=== PATIENT | male | born 1965 | race Caucasian/White ===

== ENCOUNTER 2017-07-30 06:16 | Emergency (ER) | payer BC ==
[2017-07-30] MEDS ORDERED: ONDANSETRON 4MG/2ML VIAL (J2405) As Ordered (06:30)
[2017-07-30] MEDS: LR 1,000 ML IV (06:30)
[2017-07-30] MEDS: ONDANSETRON 4MG/2ML VIAL (J2405) IV (06:30)
[2017-07-30 06:41] LABS: BASO % 0.2 % (0.0-1.0); EOS % 0.1 % (0.0-3.0); HEMATOCRIT 46.6 % (42.0-52.0); HEMOGLOBIN 15.8 g/dl (13.5-17.5); IMMATURE GRANULOCYTE % 0.5 % (0-3.0); LYMPH % 7.6 % (24.0-44.0); MEAN CORPUSCULAR HGB CONC 33.9 g/dl (32.0-36.5); MEAN CORPUSCULAR VOLUME 88.6 fl (80.0-96.0); MONO # 0.5 10^3/uL (0.0-0.8); MONO % 3.8 % (0.0-5.0); NEUTROPHILS # 11.4 10^3/uL (1.8-7.7); NEUTROPHILS % 87.8 % (36.0-66.0); PLATELET COUNT, AUTOMATED 197 10^3/uL (150-450); RED BLOOD COUNT 5.26 10^6/uL (4.30-6.10); RED CELL DISTRIBUTION WIDTH 13.5 % (11.5-14.5)
[2017-07-30] MEDS: NS 1,000 ML IV (06:42)
[2017-07-30] MEDS ORDERED: cefoTEtan DISODIUM 2 GM in D5W MINI-BAG PLUS 50 ML IV (06:45)
[2017-07-30] MEDS: KETOROLAC 30 MG/ML VIAL (J1885) IV (07:00)
[2017-07-30 07:11] LABS: ALBUMIN 4.2 GM/DL (3.2-5.2); ALKALINE PHOSPHATASE 72 U/L (45-117); ALT/SGPT 58 U/L (12-78); ANION GAP 9 MEQ/L (8-16); AST/SGOT 33 U/L (7-37); BILIRUBIN,DIRECT 0.2 MG/DL (0.0-0.2); BILIRUBIN,TOTAL 0.8 MG/DL (0.2-1.0); BLOOD UREA NITROGEN 15 MG/DL (7-18); CALCIUM LEVEL 8.9 MG/DL (8.5-10.1); CARBON DIOXIDE LEVEL 25 MEQ/L (21-32); CHLORIDE LEVEL 107 MEQ/L (98-107); CREATININE FOR GFR 1.59 MG/DL (0.70-1.30); GLOMERULAR FILTRATION RATE 49.3 (>56); GLUCOSE, FASTING 120 MG/DL (70-100); LIPASE 293 U/L (73-393); POTASSIUM SERUM 3.9 MEQ/L (3.5-5.1); SODIUM LEVEL 141 MEQ/L (136-145); TOTAL PROTEIN 7.7 GM/DL (6.4-8.2)
[2017-07-30 07:55] LABS: KETONE, URINE AUTO RFX 1+ mg/dL (NEGATIVE); LEUKOCYTE ESTERASE UR AUTO RFX NEGATIVE (NEGATIVE); MUCUS, URINE RFX SMALL (NEGATIVE); NITRITE, URINE AUTO RFX NEGATIVE (NEGATIVE); RBC, URINE AUTO RFX 3 /HPF (0-3); SPECIFIC GRAVITY UR AUTO RFX 1.016 (1.002-1.035); SQUAM EPITHELIAL CELL UR AURFX 0 /HPF (0-6); WBC, URINE AUTO RFX 0 /HPF (0-3)
== END 2017-07-30 08:24 | disposition home or self-care (01) ==
LOC: M ED 06:16
DX: A08.4 Viral intestinal infection, unspecified (principal)
CPT/HCPCS: J2405

== ENCOUNTER 2018-11-24 20:28 | Emergency (ER) | payer BC ==
[~2018-11-24] VITALS: Ht 188 cm; Wt 131.8 kg
[~2018-11-24 20:28] MED LIST: ZOFR4TAB14 PO
[2018-11-24 20:47] LABS: BASO % 0.3 % (0.0-1.0); EOS % 0.4 % (0.0-3.0); HEMOGLOBIN 17.6 g/dl (13.5-17.5); LYMPH # 1.4 10^3/uL (1.5-5.0); LYMPH % 12.2 % (24.0-44.0); MEAN CORPUSCULAR HEMOGLOBIN 32.2 pg (27.0-33.0); MEAN CORPUSCULAR HGB CONC 35.2 g/dl (32.0-36.5); MEAN CORPUSCULAR VOLUME 91.4 fl (80.0-96.0); MONO # 0.5 10^3/uL (0.0-0.8); MONO % 4.8 % (0.0-5.0); NEUTROPHILS # 9.2 10^3/uL (1.5-8.5); NEUTROPHILS % 81.8 % (36.0-66.0); PLATELET COUNT, AUTOMATED 172 10^3/uL (150-450); RED BLOOD COUNT 5.47 10^6/uL (4.30-6.10); WHITE BLOOD COUNT 11.2 10^3/uL (4.0-10.0)
[2018-11-24] MEDS ORDERED: ASPIRIN 81 MG CHEW TABLET PO ONE (21:00)
[2018-11-24 21:13] LABS: CALCIUM LEVEL 9.4 MG/DL (8.5-10.1); CK-MB VALUE MASS 3.2 NG/ML (<3.6); CREATININE FOR GFR 1.5 MG/DL (0.70-1.30); GLOMERULAR FILTRATION RATE 52.5 (>56); MB/CK RELATIVE INDEX 1.5 (< OR =4); POTASSIUM SERUM 3.8 MEQ/L (3.5-5.1); TROPONIN I 0.95 NG/ML (< 0.10)
[2018-11-24] MEDS: NITROGLYCERIN 0.4 MG SUBL TABLET SL PRN ×2 (21:14→21:47)
[2018-11-24] MEDS ORDERED: ONDANSETRON 4MG/2ML VIAL (J2405) IV ONE (21:45)
[2018-11-24] MEDS ORDERED: HEPARIN SOD (PORCINE) 5000 UNITS/ML VIAL IV ONE (22:00)
[2018-11-24 22:24] LABS: INR 1.11
[2018-11-24 22:25] LABS: PARTIAL THROMBOPLASTIN TIME 30.2 SECONDS (25.0-38.4)
[2018-11-24] MEDS ORDERED: NITROGLYCERIN 2% OINT 1 GM *U/D* PKT TOP ONE (22:45)
[2018-11-24] MEDS ORDERED: HEPARIN DRIP 25,000 UNITS in IV 1 EA IV SCH (23:00)
[2018-11-24 23:23] VITALS: BP 123/79
--- NOTE | 2018-11-25 07:17 | ECGEPIP ---
[facility] - ED Test Date: 2018-11-24 Pat Name: JOHNNY TODD Department: Room: - Gender: Male Product Expert: : 1965 Requested By: TOMASA Jimenez Order Number: [id number] Reading MD: Wale Jones Measurements Intervals [place] Rate: 59 P: 46 MI: 157 QRS: -17 QRSD: 113 T: 63 QT: 390 QTc: 388 Interpretive Statements SINUS BRADYCARDIA WITH SINUS ARRHYTHMIA SEPTAL MYOCARDIAL INFARCTION, POSSIBLY ACUTE ST DEPRESSION, CONSIDER SUBENDOCARDIAL INJURY CLINICAL CORRELATION Electronically Signed on 11-25-2018 7:16:58 EDT by Wale Jones
--- NOTE | 2018-11-25 07:20 | ECGEPIP ---
[facility] - ED Test Date: 2018-11-24 Pat Name: JOHNNY TODD Department: Room: - Gender: Male Cd Technician: IAN : 1965 Requested By: TOMASA Jimenez Order Number: [id number] Reading MD: Wale Jones Measurements Intervals [place] Rate: 54 P: 32 IA: 148 QRS: 5 QRSD: 98 T: 94 QT: 404 QTc: 386 Interpretive Statements SINUS BRADYCARDIA SEPTAL ST ELEVATION RESOLVED, RECIPROCAL ST-T ABNORMALITIES NEAR TO COMPLETE RESOLUTION COMPARED TO PRIOR ON SAME DATE Electronically Signed on 11-25-2018 7:19:40 EDT by Wale Jones
--- NOTE | 2018-11-25 08:06 | REP ---
Clinical: Acute chest pain . Comparison: None . Findings: The mediastinum and cardiac silhouette are stable and within normal limits for portable technique. The lung durant are clear without acute consolidation, effusion, or pneumothorax. Skeletal structures are intact. Impression: No acute cardiopulmonary process appreciated. Electronically Signed by Dangelo Perales MD 11/25/2018 07:57 A
[2018-12-21] MEDS ORDERED: ASPI81TA26 PO (13:14)
[2018-12-21] MEDS ORDERED: METO25TA4 PO (13:14)
[2018-12-21] MEDS ORDERED: METO50TA7 PO (13:14)
[2018-12-21] MEDS ORDERED: ATOR80TA59 PO (13:14)
[2018-12-21] MEDS ORDERED: BRIL90TA PO (13:14)
== END 2018-11-24 23:34 | disposition short-term general hospital (02) ==
LOC: M ED 20:28
DX: I20.0 Unstable angina (principal); R00.1 Bradycardia, unspecified; R06.02 Shortness of breath; Z79.82 Long term (current) use of aspirin; Z79.899 Other long term (current) drug therapy
CPT/HCPCS: 71045; 80048; 82550; 82553; 84484; 85025; 85610; 85730; 93005; 93041; 94760; 96374; 99285; J2405

== ENCOUNTER → 2018-12-05 | Outpatient (CLI) | payer BC ==
[~2018-12-05] MED LIST changes: +ASPI81TA26 PO; +ATOR80TA59 PO; +BRIL90TA PO; +METO25TA4 PO; +METO50TA7 PO
[2018-12-05 10:54] LABS: BASO % 0.3 % (0.0-1.0); EOS # 0.1 10^3/uL (0.0-0.5); EOS % 1.8 % (0.0-3.0); HEMOGLOBIN 15.4 g/dl (13.5-17.5); LYMPH # 1.2 10^3/uL (1.5-5.0); MEAN CORPUSCULAR HEMOGLOBIN 31.6 pg (27.0-33.0); MEAN CORPUSCULAR HGB CONC 33.5 g/dl (32.0-36.5); MEAN CORPUSCULAR VOLUME 94.5 fl (80.0-96.0); MONO # 0.5 10^3/uL (0.0-0.8); MONO % 7.8 % (0.0-5.0); NEUTROPHILS # 4.3 10^3/uL (1.5-8.5); NEUTROPHILS % 70.8 % (36.0-66.0); PLATELET COUNT, AUTOMATED 194 10^3/uL (150-450); RED BLOOD COUNT 4.87 10^6/uL (4.30-6.10); WHITE BLOOD COUNT 6.1 10^3/uL (4.0-10.0)
[2018-12-05 11:09] LABS: HEMOGLOBIN A1c 5.6 %
[2018-12-05 11:14] LABS: ALBUMIN 3.5 GM/DL (3.2-5.2); BILIRUBIN,TOTAL 1.2 MG/DL (0.2-1.0); CALCIUM LEVEL 8.8 MG/DL (8.5-10.1); CHOLESTEROL RISK RATIO 2.921 (<5); CREATININE FOR GFR 1.44 MG/DL (0.70-1.30); GLOMERULAR FILTRATION RATE 55.1 (>56); POTASSIUM SERUM 4.5 MEQ/L (3.5-5.1); TOTAL PROTEIN 6.5 GM/DL (6.4-8.2)
== END ==
LOC: M LAB 10:14
PROVIDERS: ATTEND Student in an Organized Health Care Education/Training Program
DX: Z13.1 Encounter for screening for diabetes mellitus (principal); R79.89 Other specified abnormal findings of blood chemistry; Z13.220 Encounter for screening for lipoid disorders

== ENCOUNTER → 2018-12-26 | Outpatient (REF) | payer BC ==
[2018-12-26 18:34] LABS: APPEARANCE, URINE CLEAR (CLEAR); BACTERIA, URINE AUTO NEGATIVE (NEGATIVE); BILIRUBIN, URINE AUTO NEGATIVE (NEGATIVE); BLOOD, URINE BLOOD NEGATIVE (NEGATIVE); COLOR, URINE YELLOW (YELLOW); GLUCOSE, URINE (UA) AUTO NEGATIVE (NEGATIVE); KETONE, URINE AUTO NEGATIVE (NEGATIVE); LEUKOCYTE ESTERASE, URINE AUTO NEGATIVE (NEGATIVE); MUCUS, URINE SMALL (NEGATIVE); NITRITE, URINE AUTO NEGATIVE (NEGATIVE); PROTEIN, URINE AUTO NEGATIVE (NEGATIVE); RBC, URINE AUTO 1 /HPF (0-3); SPECIFIC GRAVITY URINE AUTO 1.024 (1.002-1.035); SQUAMOUS EPITHELIAL CELL UR AU 0 /HPF (0-6); UROBILINOGEN, URINE AUTO 0.2 mg/dL (0.0-2.0); WBC, URINE AUTO 0 /HPF (0-3)
== END ==
LOC: M SFHCPLAZ 16:50
PROVIDERS: ATTEND Family Medicine
DX: R79.89 Other specified abnormal findings of blood chemistry (principal)

== ENCOUNTER → 2019-01-02 | Outpatient (CLI) | payer BC ==
[2019-01-02 14:17] LABS: BLOOD UREA NITROGEN 16 MG/DL (7-18); CARBON DIOXIDE LEVEL 26 MEQ/L (21-32); CHLORIDE LEVEL 105 MEQ/L (98-107); CREATININE FOR GFR 1.26 MG/DL (0.70-1.30); GLOMERULAR FILTRATION RATE > 60.0 (>56); GLUCOSE, FASTING 100 MG/DL (70-100); POTASSIUM SERUM 4.2 MEQ/L (3.5-5.1); SODIUM LEVEL 137 MEQ/L (136-145)
== END ==
LOC: M LAB 12:40
PROVIDERS: ATTEND Family Medicine
DX: R79.89 Other specified abnormal findings of blood chemistry (principal)

== ENCOUNTER 2019-01-18 14:50 | Outpatient (RCR) | payer BC ==
--- NOTE | 2018-12-21 14:08 | CARECAPL ---
Assessment Account #s: Initial Assessment General Diagnoses: Stent, NSTEMI Date of event: Nov 24, 2018 Physician: Ever Reese P Allergies: Coded Allergies: No Known Allergies (Unverified , 07/30/17) Date Entered Program: Dec 21, 2018 Risk strat for cardiac event: Low Exercise Date: Dec 21, 2018 Assessment: Initial Assessment Stages of change: Contemplate Exercise Prescription Plan TO EDUCATE AND BUILD ENDURANCE THROUGH MONITORED EXERCISE Modalities initiated: Treadmill (WILL ADD), Cardio-Strider (WILL ADD), Nustep (WILL ADD), Arm Aerometer (WILL ADD), Dumbells (WILL ADD), Recumbent Bike (WILL ADD) Frequency: 3 Duration (Minutes) 30 - 60 minutes total exercise a day. 15 - 20 work intervals in minutes. PRN rest intervals in minutes. Functional Capacity Goal Sustained Metabolic Equivalent of a task (MET) goal of 2.5-3.5 for 15-20 minutes. Intensity: 3-Moderate Progression (METS) Increase by: 0.5 METS every: 5 sessions TOLERATED Angina with ex: No Target Heart Rate REST +35-40 Resistance Training: Yes Weight (pounds): 2 Reps: 12-15 Hypertension: Yes Hypertension controlled with: Medication (METOPROLOL) Resting 129/71 Medications Scheduled Aspirin (Aspirin EC), 1 TAB PO DAILY, (Reported) Atorvastatin Calcium (Atorvastatin Calcium), 1 TAB PO DAILY, (Reported) Metoprolol Tartrate (Metoprolol Tartrate), 1 TAB PO DAILY, (Reported) Metoprolol Tartrate (Metoprolol Tartrate), 50 MG PO QHS, (Reported) Ticagrelor Base (Brilinta), 90 MG PO BID, (Reported) Current BP 129/71 Med Change: No Intervention Resistance Training: Yes Education: Self pulse (INSTRUCTED ON TAKING SELF PULSE), Low NA diet (REVIEWED IMPORTANCE OF NOT ADDING SALT TO DIET), BP medication (REVIEWED METOPROLOL, USE AND ACTION) Target Goals Individual exercise Rx (1) BP 140/90 or 130/80 if DM or CKD (1) Aerobic active 30+min 5 days per week (1) Nutrition Date: Dec 21, 2018 Assessment: Initial Assessment Stages of change: Contemplate Lipid- med/supplement ATORVASTATIN Med Change: No Diabetes Diabetes: No Monitor Blood Sugar at home: No Medication Change: No Weight Management Weight (lbs): 252 Height (inches): 75 Waist Circumference (Inches): 46 BMI: 31.5 Weight goal: 200 Special Diet: low salt, low-fat Alcohol: special Diet Access Tool: Rate your plate Score: 42 Current Weight (pounds): 252 Weight Goal 200 Intervention Computer Programming Professor Consult: No Nurse/patient discussion: Yes Dietary Goals LESS SNACK FOODS/MORE FRUITS AND VEGETABLES Diet Class: Yes (WILL SEE FILM REPLACEMENT ORDERER WHILE IN PROGRAM) Referral to Diabetes education: No Referral to lipid clinic: No Referral to weight mangement p: No Education Eating Healthy Target goal LDL-C<100 if triglycerides are >200 Non-HDL-C should be <130 (1) LDL-C<70 for high risk patients (4) HbA1c<7% (1) BMI<25 Waist cir<40in M/<35in F (1) Education Date: Dec 21, 2018 Assessment: Initial Assessment Learning Barriers: ready Knowledge Test Score: 10 Stages of change: Contemplate Family Support: Yes Tobacco use: No Tobacco Use Smokeless tobacco: No Intervention Referral to smoking cessation: No Individual education and couns: No Tobacco Adjunct: No Education class schedule given: No Attended education classes: No Education: CAD, Risk factors, med compliance, cardiac A&P, Angina S/S, Sexuality (WILL ADD EDUCATION THROUGH PROGRAM) Target Goals Complete cessation of tobacco use (1). Psychosocial Date: Dec 21, 2018 Assessment: Initial Assessment Psych Test (Initial/Discharge) Tool Used: Other (PHQ-9) Score: 3 Stages of change: Contemplate Intervention Physician Consult: No Physician Referral: No Med Change: No Stress Management Class: No Uses Stress Management Skills: Yes Education Education: Coping Techniques, S/S depression, Relaxation Techniques Target Goal Assess presence or absence of depression using a valid screening tool (1). Maximize coping skills (2). Positive support system (2). Patient/Program Goal Preventative Medication: Yes Aspirin, Yes Beta blockade, Yes Statin/OTR lipid Lowering Fall Risk Assess: Yes (NOT A FALL RISK) Provider Assessment Session Number: 1 Provider Assessment: Proceed with rehab Jad Valentino RN Dec 21, 2018 14:08
--- NOTE | 2019-01-13 08:47 | CARECAPL ---
Assessment Account #s: Re-Assessment I General Diagnoses: Stent, NSTEMI Date of event: Nov 24, 2018 Physician: Ever Reese P Allergies: Coded Allergies: No Known Allergies (Unverified , 07/30/17) Date Entered Program: Dec 21, 2018 Risk strat for cardiac event: Low Exercise Date: Jan 11, 2019 Assessment: Re-Assessment I Stages of change: Preperation Exercise Prescription Plan educate on cardiovascular disease and increase endurance, strength and flexibility through monitored exercise program. Modalities initiated: Treadmill (speed 3.0 incline 2.0 for 15 minutes mets 4.12 Rpe 2), Nustep (resistance of 6 for 15 minutes mets 6.6 RPE 3), Arm Aerometer (resistance 3.0 for 10 minutes Mets 4.2 RPE 3), Dumbells (6lb 2 set for 15 reps RPE 3), Recumbent Bike (Resistance of 3 for 10 minutes mets 4.9 RPE 3) Frequency: 2-3 Duration (Minutes) 30 - 60 minutes total exercise a day. 15 - 20 work intervals in minutes. PRN rest intervals in minutes. Functional Capacity Goal Sustained Metabolic Equivalent of a task (MET) goal of 5.5-6.5 for 15-20 minutes. Intensity: 3-Moderate Progression (METS) Increase by: 0.5 METS every: 3-5 sessions Angina with ex: No Target Heart Rate rest + 35-40 per beta hanna therapy. Resistance Training: Yes Weight (pounds): 6 Reps: 12-15 Hypertension: No Hypertension controlled with: Medication Resting 110/78 Peak Exercise BP 150/88 Meds metoprolol BID. Medications Scheduled Aspirin (Aspirin EC), 1 TAB PO DAILY, (Reported) Atorvastatin Calcium (Atorvastatin Calcium), 1 TAB PO DAILY, (Reported) Metoprolol Tartrate (Metoprolol Tartrate), 1 TAB PO DAILY, (Reported) Metoprolol Tartrate (Metoprolol Tartrate), 50 MG PO QHS, (Reported) Ticagrelor Base (Brilinta), 90 MG PO BID, (Reported) Intervention Education: Self pulse (independent with taking his pulse.), Ex safety (patient states keep hydrated and wear loose comfortable clothing to exercise in.), S/S to report (Patient states report chest pain that does not go away, N/V and excessive sweating without exercise.), Low NA diet (Patient states do not add salt to his food if he does it will increase his BP.), BP medication (Patient states he takes Metoprolol to lower BP and heart rate.), RPE Scale (demonstrates independence.), Equipment orientation (demonstrates independence.), warm up/cool down (demonstrates independence.), Understand BP (patient states his BP should be below 130/80. ), Physical Active (Patient states remain active after cardiac rehab by going to [employer]. ) Education Goals Met: No (will continue to educate throughout program. ) Target Goals Individual exercise Rx (1) BP 140/90 or 130/80 if DM or CKD (1) Aerobic active 30+min 5 days per week (1) Nutrition Date: Jan 13, 2019 Assessment: Re-Assessment I Stages of change: Preperation Med Change: No Diabetes Diabetes: No Current Weight (pounds): 252.4 Weight Goal to lose 3lbs in 30 days by eating healthier portions of food. Intervention Inbound Sales Representative Consult: No Nurse/patient discussion: Yes Dietary Goals eating healthier portions of food. Diet Class: No Education Eating Healthy (patient states eat healthier portions, more vegetables and whole grains in moderation.) Education Goals Met: No (will continue to educate throughout program.) Target goal LDL-C<100 if triglycerides are >200 Non-HDL-C should be <130 (1) LDL-C<70 for high risk patients (4) HbA1c<7% (1) BMI<25 Waist cir<40in M/<35in F (1) Education Date: Jan 13, 2019 Assessment: Re-Assessment I Stages of change: Preperation Intervention Education: CAD (Patient states high cholesterol clogs arteries causing Coronary artery disease. ), Risk factors (Patient states overweight, diabetes and high cholesterol as risk factors for CAD.), med compliance (Patient states importance of taking medication as prescribed by MD to important for his heart.), cardiac A&P (patient independent in desribing how the heart functions. ), Angina S/S (Pa tient states chest pain that goes away when he sits down and relaxes. ), Sexuality (Patient states with permission from MD before being sexual active with partner. ) Education Goals Met: No (will educate throughout program. ) Target Goals Complete cessation of tobacco use (1). Psychosocial Date: Jan 13, 2019 Assessment: Re-Assessment I Stages of change: Preperation Intervention Physician Consult: No Physician Referral: No Med Change: No Stress Management Class: Yes Uses Stress Management Skills: Yes Education Education: Coping Techniques (patient states talk to some one he feels comfortable with about his stress), S/S depression (Patient states withdrawal, crying and low appetite are s/s of depression.), Relaxation Techniques (Patient states listening to music and reading a book is relaxing. ) Education Goals Met: No (will educate throughout program. ) Target Goal Assess presence or absence of depression using a valid screening tool (1). Maximize coping skills (2). Positive support system (2). Patient/Program Goal Preventative Medication: Yes Aspirin, Yes Beta blockade, Yes Statin/OTR lipid Lowering, Yes Other (Brilinta) Fall Risk Assess: Yes (no fall risk) Provider Assessment Session Number: 8 Provider Assessment: Proceed with rehab (Progressing well with cardiac rehab. Attendance has been great. ) Erin North RN Jan 13, 2019 08:47
== END 2019-01-19 ==
LOC: M CR 14:50
PROVIDERS: ATTEND Internal Medicine Interventional Cardiology
DX: Z98.61 Coronary angioplasty status (principal)

== ENCOUNTER 2019-02-15 14:17 | Outpatient (RCR) | payer BC ==
--- NOTE | 2019-02-09 09:45 | CARECAPL ---
Assessment Account #s: Re-Assessment II General Diagnoses: Stent, NSTEMI Date of event: Nov 24, 2018 Physician: Ever Reese P Allergies: Coded Allergies: No Known Allergies (Unverified , 07/30/17) Date Entered Program: Dec 21, 2018 Risk strat for cardiac event: Low Exercise Assessment: Re-Assessment II Stages of change: action Exercise Prescription Plan TO EDUCATE AND BUILD ENDURANCE THROUGH MONITORED EXERCISE Modalities initiated: Treadmill (METS=5.48/RPE=2), Nustep (METS=7.2/RPE=3), Arm Aerometer (METS=5.2/RPE=4), Dumbells (8#/RPE=3), Recumbent Bike (METS=6.5/RPE=3) Frequency: 3 Duration (Minutes) 30 - 60 minutes total exercise a day. 15 - 20 work intervals in minutes. PRN rest intervals in minutes. Functional Capacity Goal Sustained Metabolic Equivalent of a task (MET) goal of 6.0-7.0 for 15-20 minutes. Intensity: 3-Moderate Progression (METS) Increase by: 0.5 METS every: 5 sessions TOLERATED Angina with ex: No Target Heart Rate REST +35-40 Resistance Training: Yes Weight (pounds): 8 Reps: 12-15 Hypertension: No Hypertension controlled with: Medication (METOPROLOL) Resting 116/84 Peak Exercise BP 156/86 Medications Scheduled Aspirin (Aspirin EC), 1 TAB PO DAILY, (Reported) Atorvastatin Calcium (Atorvastatin Calcium), 1 TAB PO DAILY, (Reported) Metoprolol Tartrate (Metoprolol Tartrate), 1 TAB PO DAILY, (Reported) Metoprolol Tartrate (Metoprolol Tartrate), 50 MG PO QHS, (Reported) Ticagrelor Base (Brilinta), 90 MG PO BID, (Reported) Current BP 108/78 Med Change: No Intervention Home exercise: Type (WALKING, ATTENDS [employer]), Frequency (3-5 DAYS PER WEEK), Duration (30-60 MINUTES) Resistance Training: Yes Education Goals Met: No (PROGRESSING TOWARDS GOALS, EDUCATION WILL CONTINUE THROUGHOUT PROGRAM) Target Goals Individual exercise Rx (1) BP 140/90 or 130/80 if DM or CKD (1) Aerobic active 30+min 5 days per week (1) Nutrition Date: Feb 09, 2019 Assessment: Re-Assessment II Stages of change: action Lipid- med/supplement ATORVASTATIN Med Change: No Diabetes Diabetes: No Monitor Blood Sugar at home: No Medication Change: No Blood sugar in range: No Weight Management Weight (lbs): 238.2 Special Diet: low salt, low-fat Current Weight (pounds): 238.2 Weight Goal TO CONTINUE TO LOSE WEIGHT BY EATING SMALLER PORTIONS, HEART HEALTHY CHOICES Intervention Sports Physician Consult: No Nurse/patient discussion: Yes Dietary Goals SMALLER PORTIONS, HEART HEALTHY CHOICES Diet Class: Yes (MET WITH SALES AND LEASING CONSULTANT 02/06/2019) Referral to Diabetes education: No Referral to lipid clinic: No Referral to weight mangement p: No Education Eating Healthy Education Goals Met: No (PROGRESSING WELL TOWARD GOALS, WILL CONTINUE TO EDUCATE WHILE IN PROGRAM) Target goal LDL-C<100 if triglycerides are >200 Non-HDL-C should be <130 (1) LDL-C<70 for high risk patients (4) HbA1c<7% (1) BMI<25 Waist cir<40in M/<35in F (1) Education Date: Feb 09, 2019 Assessment: Re-Assessment II Learning Barriers: ready Stages of change: action Family Support: Yes Tobacco use: No Tobacco Use Smokeless tobacco: No Intervention Referral to smoking cessation: No Individual education and couns: No Tobacco Adjunct: No Education class schedule given: No Attended education classes: No Education: tobacco triggers (SEE EDUCATION ON PRIOR ITP) Education Goals Met: No (PROGRESSING TOWARD GOALS AND WILL CONTINUE TO EDUCATE WHILE IN PROGRAM) Target Goals Complete cessation of tobacco use (1). Psychosocial Date: Feb 09, 2019 Assessment: Re-Assessment II Stages of change: action Intervention Physician Consult: No Physician Referral: No Med Change: No Stress Management Class: No Uses Stress Management Skills: Yes Education Education: Coping Techniques (SEE EDUCATION ON PRIOR ITP) Education Goals Met: No (CONTINUE ) Target Goal Assess presence or absence of depression using a valid screening tool (1). Maximize coping skills (2). Positive support system (2). Patient/Program Goal Preventative Medication: Yes Aspirin, Yes Beta blockade, Yes Statin/OTR lipid Lowering, Yes Other (BRILLINTA) Fall Risk Assess: Yes Provider Assessment Session Number: 16 Provider Assessment: Proceed with rehab (EDUCATION CONTINUES, PATIENT HAS EXCELLENT ATTENDENCE AND IS RECEPTIVE TO EDUCATION) Jad Valentino RN Feb 09, 2019 09:45
== END 2019-02-18 ==
LOC: M CR 14:17
PROVIDERS: ATTEND Internal Medicine Interventional Cardiology
DX: Z98.61 Coronary angioplasty status (principal)

== ENCOUNTER 2019-03-13 14:13 | Outpatient (RCR) | payer BC ==
--- NOTE | 2019-03-06 11:21 | CARECAPL ---
Assessment Account #s: Re-Assessment II (III) General Diagnoses: Stent, NSTEMI Date of event: Nov 24, 2018 Physician: Ever Reese P Allergies: Coded Allergies: No Known Allergies (Unverified , 07/30/17) Date Entered Program: Dec 21, 2018 Risk strat for cardiac event: Low Exercise Date: Mar 06, 2019 Assessment: Re-Assessment II (III) Stages of change: action Exercise Prescription Modalities initiated: Treadmill (3.6/5.5 mts 6.73 rpe 2 15 minutes), Nustep (L8 MTS 7.2 RPE 3), Arm Aerometer (4.5 MTS 5.0 RPE 3), Dumbells, Recumbent Bike (R6 MTS 5.80 RPE 3 12 MINUTES) Duration (Minutes) 30 - 60 minutes total exercise a day. 15 - 20 work intervals in minutes. PRN rest intervals in minutes. Functional Capacity Goal Sustained Metabolic Equivalent of a task (MET) goal of 6.5-7.5 for 15-20 minutes. Progression (METS) Increase by: METS every: sessions Angina with ex: No Resistance Training: Yes Weight (pounds): 8 Reps: 8-12 Hypertension: Yes Hypertension controlled with: Medication Resting 112/82 Peak Exercise BP 138/82 Medications Scheduled Aspirin (Aspirin EC), 1 TAB PO DAILY, (Reported) Atorvastatin Calcium (Atorvastatin Calcium), 1 TAB PO DAILY, (Reported) Metoprolol Tartrate (Metoprolol Tartrate), 1 TAB PO DAILY, (Reported) Metoprolol Tartrate (Metoprolol Tartrate), 50 MG PO QHS, (Reported) Ticagrelor Base (Brilinta), 90 MG PO BID, (Reported) Current BP 108/62 AFTER EXERCISE Med Change: No Intervention Home exercise: Type (SEE PRIOR ITP FOR HOME EXERCISE PROGRAM AND ALL EDUCATION COMPLETED) Education Goals Met: Yes Target Goals Individual exercise Rx (1) BP 140/90 or 130/80 if DM or CKD (1) Aerobic active 30+min 5 days per week (1) Nutrition Date: Mar 06, 2019 Assessment: Re-Assessment II (III) Current Weight (pounds): 231.8 Intervention Diet Class: Yes (02/06/19) Education Goals Met: Yes (SEE PRIOR ITP FOR EDUCATION. CHANGE IN DIET, DOWN APPROX 7#) Target goal LDL-C<100 if triglycerides are >200 Non-HDL-C should be <130 (1) LDL-C<70 for high risk patients (4) HbA1c<7% (1) BMI<25 Waist cir<40in M/<35in F (1) Education Date: Mar 06, 2019 Assessment: Re-Assessment II (III) Stages of change: action Education Goals Met: Yes (SEE PRIOR ITP FOR EDUCATION COMPLETED. ) Target Goals Complete cessation of tobacco use (1). Psychosocial Date: Mar 06, 2019 Assessment: Re-Assessment II (III) Stages of change: action Education Goals Met: Yes (SEE PRIOR ITP FOR EDUCATION COMPLETED) Target Goal Assess presence or absence of depression using a valid screening tool (1). Maximize coping skills (2). Positive support system (2). Provider Assessment Session Number: 21 Provider Assessment: Proceed with rehab (GOOD ATTITUDE TOWARD EXERCISE AND HIS PERSONAL WELLNESS, EXCELLENT ATTENDANCE) Kay Mitchell RN Mar 06, 2019 11:21
--- NOTE | 2019-03-13 17:04 | CARECAPL ---
Assessment Account #s: Discharge General Diagnoses: Stent, NSTEMI Date of event: Nov 24, 2018 Physician: Ever Reese P Allergies: Coded Allergies: No Known Allergies (Unverified , 07/30/17) Date Entered Program: Dec 21, 2018 Risk strat for cardiac event: Low Exercise Date: Mar 13, 2019 Assessment: Followup/Discharge Stages of change: action Exercise Prescription Plan TO EDUCATE AND BUILD STRENGTH AND ENDURANCE THROUGH MONITORED EXERCISE Modalities initiated: Treadmill (METS=7.05/RPE=3), Nustep (8.2/RPE=4), Arm Aerometer (METS=5.4/RPE=4), Dumbells (8#/RPE=2), Recumbent Bike (METS=7.9/RPE=3) Frequency: 3 Duration (Minutes) 30 - 60 minutes total exercise a day. 15 - 20 work intervals in minutes. PRN rest intervals in minutes. Functional Capacity Goal Sustained Metabolic Equivalent of a task (MET) goal of 6.5-7.5 for 15-20 minutes. Intensity: 3-Moderate Progression (METS) Increase by: METS every: sessions Angina with ex: No Target Heart Rate REST + 35-40 PER BETA DESHAWN THERAPY Resistance Training: Yes Weight (pounds): 8 Reps: 12-15 Hypertension: Yes Hypertension controlled with: Medication (METOPROLOL) Resting 106/76 Peak Exercise BP 170/70 Medications Scheduled Aspirin (Aspirin EC), 1 TAB PO DAILY, (Reported) Atorvastatin Calcium (Atorvastatin Calcium), 1 TAB PO DAILY, (Reported) Metoprolol Tartrate (Metoprolol Tartrate), 1 TAB PO DAILY, (Reported) Metoprolol Tartrate (Metoprolol Tartrate), 50 MG PO QHS, (Reported) Ticagrelor Base (Brilinta), 90 MG PO BID, (Reported) Current BP 114/68 Med Change: No Intervention Resistance Training: Yes Education: Self pulse (SEE PRIOR ITP FOR EDUCATION COMPLETED, ALL EDUCATION COMPLETED FOR CARDIAC REHAB) Education Goals Met: Yes Target Goals Individual exercise Rx (1) BP 140/90 or 130/80 if DM or CKD (1) Aerobic active 30+min 5 days per week (1) Nutrition Date: Mar 13, 2019 Assessment: Followup/Discharge Stages of change: action Lipid- med/supplement ATORVASTATIN Med Change: No Diabetes Diabetes: No Weight Management Weight (lbs): 232.6 Special Diet: low salt, low-fat (PATIENT DOWN 22 # SINCE HIS [place]) Current Weight (pounds): 232.6 Intervention Diabetes Educator Consult: No Nurse/patient discussion: Yes Dietary Goals HEART HEALTHY DIET,SMALLER PORTIONS Diet Class: Yes (MET WITH BORING MILL SET UP OPERATOR VERTICAL 02/06/2019) Referral to Diabetes education: No Referral to lipid clinic: No Referral to weight mangement p: No Education Eating Healthy Education Goals Met: Yes Target goal LDL-C<100 if triglycerides are >200 Non-HDL-C should be <130 (1) LDL-C<70 for high risk patients (4) HbA1c<7% (1) BMI<25 Waist cir<40in M/<35in F (1) Education Date: Mar 13, 2019 Assessment: Followup/Discharge Learning Barriers: ready Stages of change: action Family Support: Yes Tobacco use: No Tobacco Use Smokeless tobacco: No Intervention Referral to smoking cessation: No Individual education and couns: No Tobacco Adjunct: No Education class schedule given: No Attended education classes: No Education: tobacco triggers (ALL EDUCATION COMPLETED, SEE PRIOR ITP'S) Education Goals Met: Yes Target Goals Complete cessation of tobacco use (1). Psychosocial Date: Mar 13, 2019 Assessment: Followup/Discharge Stages of change: action Intervention Physician Consult: No Physician Referral: No Med Change: No Stress Management Class: No Uses Stress Management Skills: Yes Education Education: Coping Techniques (ALL EDUCATION COMPLETED,SEE PRIOR ITP'S ) Target Goal Assess presence or absence of depression using a valid screening tool (1). Maximize coping skills (2). Positive support system (2). Patient/Program Goal Preventative Medication: Yes Aspirin, Yes Beta blockade, Yes Statin/OTR lipid Lowering Fall Risk Assess: Yes (NOT A FALL RISK) Provider Assessment Session Number: 24 Provider Assessment: No changes (GOOD ATTITUDE TOWARD EDUCATION AND EXERCISE, EXCELLENT ATTENDENCE) Jad Valentino RN Mar 13, 2019 17:04
== END 2019-03-21 ==
LOC: M CR 14:13
PROVIDERS: ATTEND Internal Medicine Interventional Cardiology
DX: Z98.61 Coronary angioplasty status (principal)

== ENCOUNTER → 2020-04-15 | Outpatient (CLI) | payer BC ==
[2020-04-15 08:41] LABS: CHOLESTEROL RISK RATIO 2.88 (<5)
[2020-04-15 09:56] LABS: HEMOGLOBIN A1c 5.5 %
== END ==
LOC: M LAB 07:29
PROVIDERS: ATTEND Family Medicine
DX: Z13.1 Encounter for screening for diabetes mellitus (principal); Z13.220 Encounter for screening for lipoid disorders

== ENCOUNTER → 2020-05-21 | Outpatient (CLI) | payer BC ==
--- NOTE | 2020-05-21 15:51 | REPPI ---
INDICATION: R06.02 COMPARISON: 11/24/2018 TECHNIQUE: PA and lateral. FINDINGS: The mediastinum and cardiac silhouette are normal. The lung durant are clear and without acute consolidation, effusion, or pneumothorax. The skeletal structures are intact and normal. IMPRESSION: No obvious focal consolidation or effusion. If the patient remains symptomatic consider chest CT for further investigation. <Electronically signed by Dangelo Perales > 05/21/20 154
== END ==
LOC: M PLAIMG 14:48
PROVIDERS: ATTEND Family Medicine
DX: R06.02 Shortness of breath (principal)

== ENCOUNTER → 2020-08-26 | Outpatient (CLI) | payer BC ==
--- NOTE | 2020-08-27 15:56 | SLEEPHOME ---
DATE: 08/26/2020 ORDERED BY: Anahi Goldstein For testing, a nocturnal T3 respiratory monitoring device was used. Continuous record was made of pulse, oxygen saturation, air flow, chest and abdominal strain, and body position. There was 9 hours and 14 minutes of data reviewed. There was 7 hours and 58 minutes marked as time in bed. During the interval marked time in bed, there were 78 respiratory events identified of 10 seconds in duration or greater for a respiratory event index of 9.8. The events were primarily obstructive, more frequent but no exclusive to the supine posture. Baseline pulse rate was 56. Pulse rate ranged between 41-99. Baseline saturation 91%. Saturations fell as low as 79% with an oxygen desaturation index of 5, and testing was performed in both the supine and nonsupine positions. IMPRESSION: Abnormal home sleep testing with repetitive respiratory events and oxygen desaturations to 79% with a respiratory event index of 9.8 is consistent with the obstructive sleep apnea syndrome. RECOMMENDATION: The patient should be encouraged to undergo formal sleep evaluation.
== END ==
LOC: M SLEEP HO 10:00
PROVIDERS: ATTEND Nurse Practitioner Family
DX: R40.0 Somnolence (principal)

== ENCOUNTER → 2020-10-27 | Outpatient (CLI) | payer BC | LOC: M SLEEP 20:00 | PROVIDERS: ATTEND Nurse Practitioner Family | DX: G47.33 Obstructive sleep apnea (adult) (pediatric) (principal) ==

== ENCOUNTER → 2021-10-06 | Outpatient (CLI) | payer BC ==
[2021-10-06 11:01] LABS: BASO % 0.7 % (0.0-1.0); EOS # 0.1 10^3/uL (0.0-0.5); EOS % 1.3 % (0.0-3.0); HEMOGLOBIN 15.7 g/dl (13.5-17.5); LYMPH # 1.5 10^3/uL (1.5-5.0); LYMPH % 24.6 % (24.0-44.0); MEAN CORPUSCULAR HGB CONC 33.4 g/dl (32.0-36.5); MEAN CORPUSCULAR VOLUME 92.9 fl (80.0-96.0); MONO # 0.5 10^3/uL (0.0-0.8); MONO % 8.2 % (2.0-8.0); NEUTROPHILS # 3.9 10^3/uL (1.5-8.5); NEUTROPHILS % 64.9 % (36.0-66.0); PLATELET COUNT, AUTOMATED 142 10^3/uL (150-450); RED BLOOD COUNT 5.06 10^6/uL (4.30-6.10); WHITE BLOOD COUNT 5.9 10^3/uL (4.0-10.0)
[2021-10-06 11:43] LABS: ALT/SGPT 60 U/L (12-78); BLOOD UREA NITROGEN 17 MG/DL (7-18); CALCIUM LEVEL 9.4 MG/DL (8.5-10.1); CARBON DIOXIDE LEVEL 27 MEQ/L (21-32); CHLORIDE LEVEL 108 MEQ/L (98-107); CHOLESTEROL LEVEL 124 MG/DL (<200); CHOLESTEROL RISK RATIO 2.755 (<5); CREATININE FOR GFR 1.28 MG/DL (0.70-1.30); GLOMERULAR FILTRATION RATE > 60.0 (>56); GLUCOSE, FASTING 97 MG/DL (70-100); HDL CHOLESTEROL 45 MG/DL (>40); LDL CHOLESTEROL 61 MG/DL (<100); NON-HDL-C 79 MG/DL; POTASSIUM SERUM 3.9 MEQ/L (3.5-5.1); SODIUM LEVEL 141 MEQ/L (136-145); TRIGLYCERIDES LEVEL 88 MG/DL (<150)
== END ==
LOC: M LAB 09:49
PROVIDERS: ATTEND Nurse Practitioner Adult Health
DX: I25.119 Atherosclerotic heart disease of native coronary artery with unspecified angina pectoris (principal); E78.00 Pure hypercholesterolemia, unspecified

== ENCOUNTER → 2021-10-17 | Outpatient (CLI) | payer BC ==
[2021-10-17 09:39] LABS: CREATININE FOR GFR 1.36 MG/DL (0.70-1.30); GLOMERULAR FILTRATION RATE 58.1 (>56)
== END ==
LOC: M LAB 08:48
PROVIDERS: ATTEND Internal Medicine
DX: R94.39 Abnormal result of other cardiovascular function study (principal)

== ENCOUNTER → 2022-01-26 | Outpatient (CLI) | payer BC ==
[2022-01-26 08:22] LABS: HEMATOCRIT 46.8 % (42.0-52.0); HEMOGLOBIN 15.1 g/dl (13.5-17.5); MEAN CORPUSCULAR HEMOGLOBIN 30.6 pg (27.0-33.0); MEAN CORPUSCULAR HGB CONC 32.3 g/dl (32.0-36.5); MEAN CORPUSCULAR VOLUME 94.9 fl (80.0-96.0); PLATELET COUNT, AUTOMATED 161 10^3/uL (150-450); RED BLOOD COUNT 4.93 10^6/uL (4.30-6.10); WHITE BLOOD COUNT 6.6 10^3/uL (4.0-10.0)
[2022-01-26 09:19] LABS: ALBUMIN 3.6 GM/DL (3.2-5.2); ALT/SGPT 49 U/L (12-78); BILIRUBIN,TOTAL 0.9 MG/DL (0.2-1.0); BLOOD UREA NITROGEN 15 MG/DL (7-18); CARBON DIOXIDE LEVEL 25 MEQ/L (21-32); CHLORIDE LEVEL 108 MEQ/L (98-107); CHOLESTEROL LEVEL 124 MG/DL (<200); CHOLESTEROL RISK RATIO 2.952 (<5); CREATININE FOR GFR 1.25 MG/DL (0.70-1.30); FREE T4 0.91 NG/DL (0.76-1.46); GLOMERULAR FILTRATION RATE > 60.0 (>56); GLUCOSE, FASTING 98 MG/DL (70-100); HDL CHOLESTEROL 42 MG/DL (>40); LDL CHOLESTEROL 68 MG/DL (<100); NON-HDL-C 82 MG/DL; POTASSIUM SERUM 3.8 MEQ/L (3.5-5.1); SODIUM LEVEL 140 MEQ/L (136-145); TOTAL PROTEIN 6.7 GM/DL (6.4-8.2); TRIGLYCERIDES LEVEL 70 MG/DL (<150)
[2022-01-26 09:50] LABS: TOTAL 25(OH) VITAMIN D 27.1 NG/ML (30.0-100.0); VITAMIN B12 LEVEL 193 PG/ML (247-911)
[2022-01-26 12:56] LABS: MALB URINE SIEMENS 6.7 MG/L; MAU/CREAT RATIO 3.2 MCG/MG (0.0-30.0)
[2022-01-26 18:27] LABS: HEMOGLOBIN A1c 5.6 %
== END ==
LOC: M LAB 07:21
PROVIDERS: ATTEND Student in an Organized Health Care Education/Training Program
DX: I25.2 Old myocardial infarction (principal)

== ENCOUNTER → 2022-07-29 | Outpatient (CLI) | payer BC ==
[2022-07-29 10:24] LABS: HEMOGLOBIN 15.6 g/dl (13.5-17.5); MEAN CORPUSCULAR HEMOGLOBIN 32.1 pg (27.0-33.0); MEAN CORPUSCULAR HGB CONC 33.9 g/dl (32.0-36.5); MEAN CORPUSCULAR VOLUME 94.7 fl (80.0-96.0); PLATELET COUNT, AUTOMATED 137 10^3/uL (150-450); RED BLOOD COUNT 4.86 10^6/uL (4.30-6.10); WHITE BLOOD COUNT 5.2 10^3/uL (4.0-10.0)
[2022-07-29 11:00] LABS: ALBUMIN 3.7 G/DL (3.2-5.2); ALKALINE PHOSPHATASE 69 U/L (46-116); ALT/SGPT 49 U/L (7.0-40); AST/SGOT 38 U/L (<34); BILIRUBIN,TOTAL 1.8 MG/DL (0.3-1.2); BLOOD UREA NITROGEN 18 MG/DL (9-23); CALCIUM LEVEL 8.7 MG/DL (8.5-10.1); CARBON DIOXIDE LEVEL 27 MMOL/L (20-31); CHLORIDE LEVEL 106 MMOL/L (98-107); CREATININE FOR GFR 1.24 MG/DL (0.70-1.30); GLOMERULAR FILTRATION RATE > 60.0 (>56); GLUCOSE, FASTING 97 MG/DL (60-100); POTASSIUM SERUM 4.1 MMOL/L (3.5-5.1); SODIUM LEVEL 141 MMOL/L (136-145); TOTAL PROTEIN 6.3 G/DL (5.7-8.2)
[2022-07-29 11:53] LABS: VITAMIN B12 LEVEL 1315 PG/ML (211-911)
== END ==
LOC: M LAB 09:22
PROVIDERS: ATTEND Student in an Organized Health Care Education/Training Program
DX: E53.8 Deficiency of other specified B group vitamins (principal)

== ENCOUNTER → 2023-03-05 | Outpatient (CLI) | payer BC ==
[2023-03-05 09:10] LABS: BASO % 0.5 % (0.0-1.0); EOS # 0.2 10^3/uL (0.0-0.5); EOS % 2.5 % (0.0-3.0); HEMATOCRIT 47.1 % (42.0-52.0); HEMOGLOBIN 15.9 g/dl (13.5-17.5); LYMPH # 2.2 10^3/uL (1.5-5.0); LYMPH % 35.6 % (24.0-44.0); MEAN CORPUSCULAR HEMOGLOBIN 31.5 pg (27.0-33.0); MEAN CORPUSCULAR HGB CONC 33.8 g/dl (32.0-36.5); MEAN CORPUSCULAR VOLUME 93.3 fl (80.0-96.0); MONO # 0.5 10^3/uL (0.0-0.8); MONO % 7.6 % (2.0-8.0); NEUTROPHILS # 3.4 10^3/uL (1.5-8.5); NEUTROPHILS % 53.5 % (36.0-66.0); PLATELET COUNT, AUTOMATED 155 10^3/uL (150-450); RED BLOOD COUNT 5.05 10^6/uL (4.30-6.10); WHITE BLOOD COUNT 6.3 10^3/uL (4.0-10.0)
[2023-03-05 09:28] LABS: ALBUMIN 3.8 G/DL (3.2-5.2); ALKALINE PHOSPHATASE 67 U/L (46-116); ALT/SGPT 36 U/L (7.0-40); AST/SGOT 20 U/L (<34); BILIRUBIN,TOTAL 0.9 MG/DL (0.3-1.2); BLOOD UREA NITROGEN 12 MG/DL (9-23); CALCIUM LEVEL 9.4 MG/DL (8.5-10.1); CARBON DIOXIDE LEVEL 28 MMOL/L (20-31); CHLORIDE LEVEL 107 MMOL/L (98-107); CHOLESTEROL LEVEL 128 MG/DL (<200); CREATININE FOR GFR 1.24 MG/DL (0.70-1.30); GLOMERULAR FILTRATION RATE > 60.0 (>56); GLUCOSE, FASTING 87 MG/DL (60-100); LDL CHOLESTEROL 77.6 MG/DL (<100); POTASSIUM SERUM 4.2 MMOL/L (3.5-5.1); SODIUM LEVEL 141 MMOL/L (136-145); TOTAL PROTEIN 6.4 G/DL (5.7-8.2); TRIGLYCERIDES LEVEL 52 MG/DL (<150); VITAMIN B12 LEVEL 1675 PG/ML (211-911)
[2023-03-05 09:44] LABS: APPEARANCE, URINE CLEAR (CLEAR); BACTERIA, URINE AUTO NEGATIVE (NEGATIVE); BILIRUBIN, URINE AUTO NEGATIVE (NEGATIVE); BLOOD, URINE BLOOD NEGATIVE (NEGATIVE); COLOR, URINE YELLOW (YELLOW); GLUCOSE, URINE (UA) AUTO NEGATIVE (NEGATIVE); KETONE, URINE AUTO NEGATIVE (NEGATIVE); LEUKOCYTE ESTERASE, URINE AUTO NEGATIVE (NEGATIVE); MUCUS, URINE SMALL (NEGATIVE); NITRITE, URINE AUTO NEGATIVE (NEGATIVE); PROTEIN, URINE AUTO NEGATIVE (NEGATIVE); RBC, URINE AUTO 0 /HPF (0-3); SQUAMOUS EPITHELIAL CELL UR AU 0 /HPF (0-6); WBC, URINE AUTO 0 /HPF (0-3)
[2023-03-05 09:47] LABS: HEMOGLOBIN A1c 5.3 % (4.0-6.0)
[2023-03-07 13:06] LABS: PSA TOTAL 1.1 ng/mL (0.0-4.0)
== END ==
LOC: M LAB 07:56
PROVIDERS: ATTEND Student in an Organized Health Care Education/Training Program
DX: Z00.00 Encounter for general adult medical examination without abnormal findings (principal); E66.9 Obesity, unspecified; R39.11 Hesitancy of micturition; I25.2 Old myocardial infarction; R60.0 Localized edema; E53.8 Deficiency of other specified B group vitamins

== ENCOUNTER → 2023-06-16 | Outpatient (CLI) | payer BC ==
[2023-06-16 09:11] LABS: BLOOD UREA NITROGEN 16 MG/DL (9-23); CALCIUM LEVEL 9.1 MG/DL (8.5-10.1); CARBON DIOXIDE LEVEL 30 MMOL/L (20-31); CHLORIDE LEVEL 106 MMOL/L (98-107); CREATININE FOR GFR 1.26 MG/DL (0.70-1.30); GLOMERULAR FILTRATION RATE > 60.0 (>56); GLUCOSE, FASTING 95 MG/DL (60-100); POTASSIUM SERUM 4.2 MMOL/L (3.5-5.1); SODIUM LEVEL 142 MMOL/L (136-145)
== END ==
LOC: M LAB 07:32
PROVIDERS: ATTEND Physician Assistant
DX: I42.0 Dilated cardiomyopathy (principal)

== ENCOUNTER → 2023-10-15 | Outpatient (CLI) | payer BC ==
[2023-10-15 09:44] LABS: ALBUMIN 3.9 G/DL (3.2-5.2); ALKALINE PHOSPHATASE 67 U/L (46-116); ALT/SGPT 26 U/L (7.0-40); AST/SGOT 18 U/L (<34); BILIRUBIN,DIRECT 0.6 MG/DL (<0.4); BILIRUBIN,TOTAL 1.7 MG/DL (0.3-1.2); BLOOD UREA NITROGEN 17 MG/DL (9-23); CALCIUM LEVEL 9.3 MG/DL (8.5-10.1); CARBON DIOXIDE LEVEL 29 MMOL/L (20-31); CHLORIDE LEVEL 108 MMOL/L (98-107); CHOLESTEROL LEVEL 124 MG/DL (<200); CHOLESTEROL RISK RATIO 3.38 (<5); CREATININE FOR GFR 1.21 MG/DL (0.70-1.30); GLOMERULAR FILTRATION RATE > 60.0 (>56); GLUCOSE, FASTING 93 MG/DL (60-100); HDL CHOLESTEROL 36.6 MG/DL (>40); LDL CHOLESTEROL 70.8 MG/DL (<100); NON-HDL-C 87.4 MG/DL; PHOSPHORUS LEVEL 2.8 MG/DL (2.5-4.9); POTASSIUM SERUM 4.4 MMOL/L (3.5-5.1); SODIUM LEVEL 141 MMOL/L (136-145); TOTAL PROTEIN 6.4 G/DL (5.7-8.2); TRIGLYCERIDES LEVEL 83 MG/DL (<150)
[2023-10-15 09:49] LABS: HEMOGLOBIN A1c 5.4 % (4.0-6.0)
== END ==
LOC: M LAB 08:24
PROVIDERS: ATTEND Student in an Organized Health Care Education/Training Program
DX: Z00.00 Encounter for general adult medical examination without abnormal findings (principal)

== ENCOUNTER → 2024-01-17 | Outpatient (CLI) | payer BC ==
[~2024-01-17] MED LIST changes: +ISOVUE-370 76% 100ML VIAL As Ordered ONE
== END ==
LOC: M RAD 09:08
PROVIDERS: ATTEND Family Medicine
DX: I77.810 Thoracic aortic ectasia (principal)
CPT/HCPCS: 71275; Q9967

== ENCOUNTER → 2024-05-03 | Outpatient (CLI) | payer BC ==
[~2024-05-03] MED LIST changes: -ISOVUE-370 76% 100ML VIAL As Ordered ONE
[2024-05-03 17:57] LABS: BLOOD UREA NITROGEN 19 MG/DL (9-23); CALCIUM LEVEL 9.3 MG/DL (8.5-10.1); CARBON DIOXIDE LEVEL 30 MMOL/L (20-31); CHLORIDE LEVEL 108 MMOL/L (98-107); GLOMERULAR FILTRATION RATE > 60.0 (>56); GLUCOSE, FASTING 99 MG/DL (60-100); POTASSIUM SERUM 4.5 MMOL/L (3.5-5.1); SODIUM LEVEL 144 MMOL/L (136-145)
== END ==
LOC: M PLALAB 14:06
PROVIDERS: ATTEND Family Medicine
DX: I25.5 Ischemic cardiomyopathy (principal)